=== PATIENT | male | born 1965 | race Caucasian/White ===

== ENCOUNTER 2017-03-01 08:46 | Emergency (ER) | payer MEDICAID ==
[~2017-03-01] VITALS: Ht 175.3 cm; Wt 97.0 kg
[2017-03-01 09:04] VITALS: BP 138/95
== END 2017-03-01 10:16 | disposition home or self-care (01) ==
LOC: ER 09:08
DX: H11.32 Conjunctival hemorrhage, left eye (principal)
CPT/HCPCS: 99282